=== PATIENT | male | born 1980 | race Caucasian/White ===

== ENCOUNTER 2025-02-22 14:53 | Observation (INO) ==
[2025-02-22] MEDS: IBUPROFEN 600 MG TAB PO STA (15:11)
[2025-02-22] MEDS: ACETAMINOPHEN 325 MG TAB PO STA (15:12)
[2025-02-22] MEDS: LIDOCAINE 5% 1 PATCH TD STA (15:13)
[2025-02-22] MEDS: ACETAMINOPHEN 1,000 MG/100 ML VIAL IV STA (15:15)
[2025-02-22] MEDS: KETOROLAC TROMETHAMINE 15 MG/ML VIAL IV ONE (15:15)
--- NOTE | 2025-02-22 15:29 | Emergency Department Note ---
Impression & Plan Intractable low back pain, Ambulatory dysfunction ED Provider Note NAME: FLORINA LOPEZ AGE: 44 SEX: M : 1980 ARRIVES VIA: Ambulance INFORMANT: Patient, EMS ED PROVIDER(S): Jesus Banks DO CHIEF COMPLAINT: back pain HPI: This is a 44-year-old male who is otherwise healthy presenting to [facility] for further evaluation of back pain. Patient is accompanied by EMS who provide additional history EMS states the patient took Tylenol prior to arrival. They state they found no significant injuries and he remained hemodynamically stable. Patient states that he may have twisted his back or strained his back this week while lifting. He states that he went out to take the garbage this morning and when walking back in the seized. He reports sharp pain in his lower back. Patient was told by his chiropractor to lay on the floor all weekend. They deny fever or chills. No cough or congestion. Denies chest pain or palpitations. No shortness of breath. They deny abdominal pain, nausea and vomiting. No urinary complaints. No recent changes in bowel movements. Patient denies recent changes in medications or OTC supplements. No numbness or tingling to the lower extremities. No urinary or bowel incontinence. No saddle anesthesia. No prior back surgery. Patient offers no other complaints, today. ADDITIONAL HISTORY OBTAINED: Per HPI Chronic Medical/Social Conditions Affecting Care: Per HPI PAST MEDICAL HISTORY: See Below PAST SURGICAL HISTORY: See Below FAMILY HISTORY: See Below SOCIAL HISTORY: See Below HOME MEDICATIONS: See Below ALLERGIES: See Below VITALS: See Below PHYSICAL EXAMINATION: GENERAL: Alert, well developed, well nourished, no acute distress HEAD: Normocephalic, atraumatic EYES: EOM's intact, sclera anicteric, conjunctiva clear OROPHARYNX: Airway patent and mucous membranes moist LUNGS: No respiratory distress, normal respiratory rate and effort HEART: Well perfused, regular rate ABDOMEN: Abdomen non-distended BACK: TTP over the bilateral paraspinal tissue in lumbar spine. No midline TTP or step offs. 5/5 strength in b/l LEs that are neurovascularly intact. 2/4 patellar reflexes bilaterally. EHL strength 5/5 bilaterally. SKIN: Normal color, dry EXTREMITIES: No gross deformities, no edema NEURO: Alert, oriented x3, appropriate for age, moves all four extremities, normal speech MEDICAL DECISION MAKING: Differential diagnoses includes but not limited to LBP, DDD, sciatica, UTI, AAA, pyelonephritis, nephrolithiasis, pancreatitis, musculoskeletal strain, muscle spasm, cord compression, spinal stenosis In summary, this is a 44 year old male who presented with back pain. Differential as above. Nursing notes and pertinent past medical records reviewed. Vital signs reviewed and the patient is mildly hypertensive but otherwise afebrile and HDS. History and presentation revealed some prior back issues but no documented injuries or surgeries. Physical examination revealed as above. As a result of my initial evaluation, I considered vascular as well as GI/ pathology but felt to be unlikely as the patient is otherwise healthy and symptoms are consistent with a musculoskeletal etiology. Labs were obtained. I did offer IV placement and IV medications to the patient. He currently would like to trial p.o. medications. The patient was given diazepam, ibuprofen, Tylenol and a lidocaine patch. He refused labs and IV placement/medications. The patient was managed with above therapies but failed to improve. He was given a PO dose of oxycodone. Offered the patient imaging and he was agreeable. CT L spine obtained and reviewed by me unremarkable. I did reevaluate the patient as reporting some improvement. Nursing staff and I tried to stand the patient. The patient can barely stand on his own. Still having severe lower back pain. He still he has a wide-based gait. Patient remains neurovascularly intact. Patient's will not be able to take him home like this. Patient cannot ambulate. Plan for PVR, lab work and MRI. Will give the patient IV fluid resuscitation, Zofran and steroids. I did reevaluate the patient. Patient was able to void while in the emergency department. Postvoid residual was 0 mL. Did reexamine the patient. Remains neurovascularly intact in the lower extremities. I have 0 suspicion for spinal cord compression but will obtain MRI for r/o and to evaluate for other pathology. Patient agreeable for admission and MRI. Discussed with Dr. Lopez of [facility] and subsequently admitted. Consults/Care Managements Discussions: Per [facility] ER treatment provided: See above Procedures: None Critical Care: None The chart was completed utilizing [employer] voice recognition software. Grammatical errors, random word insertions, pronoun errors, and incomplete sentences are an occasional consequence of this system due to software limitations, ambient noise, and hardware issues. Any formal questions or concerns about the content, text, or information contained within the body of this dictation should be directly addressed to the physician for clarification. Past Med/Surg History Problem List (Updated 02/22/25 @ 19:34 by Jesus Banks DO) Ambulatory dysfunction (Acute) Intractable low back pain (Acute) Social History Smoking Status: Never smoker Feels Safe at Home: Yes Allergies Allergies Allergy/AdvReac Type Severity Reaction Status Date / Time No Known Allergies Allergy Unknown Verified 11/28/24 09:11 Home Meds Home Medications Medication Instructions Recorded Confirmed No Known Home Medications 08/13/24 02/22/25 Results & Data (ED) Vital Signs Vital Signs - 24 hr 02/22/25 14:58 02/22/25 15:03 02/22/25 15:06 Temperature 36.9 C Temperature Source Oral Pulse Rate 81 69 70 Pulse Rate [Apical] Pulse Rate from SpO2 Sensor Respiratory Rate 16 19 Blood Pressure 144/70 H Blood Pressure [Right Arm] Blood Pressure Mean 94 Blood Pressure Mean [Right Arm] Pulse Oximetry 99 Oxygen Delivery Method Room Air Sepsis Recent Fever Within 48 Hours No Sepsis New/Unexplained Change in Mental Status N/A Sepsis Action Taken by Nursing No Action Required 02/22/25 15:12 02/22/25 15:21 02/22/25 15:30 Temperature Temperature Source Pulse Rate 71 63 71 Pulse Rate [Apical] Pulse Rate from SpO2 Sensor 64 71 Respiratory Rate 17 22 16 Blood Pressure Blood Pressure [Right Arm] Blood Pressure Mean Blood Pressure Mean [Right Arm] Pulse Oximetry 100 100 Oxygen Delivery Method Sepsis Recent Fever Within 48 Hours Sepsis New/Unexplained Change in Mental Status Sepsis Action Taken by Nursing 02/22/25 15:42 02/22/25 15:51 02/22/25 16:00 Temperature Temperature Source Pulse Rate 59 L 66 73 Pulse Rate [Apical] Pulse Rate from SpO2 Sensor 61 65 67 Respiratory Rate 24 19 12 Blood Pressure 147/85 H Blood Pressure [Right Arm] Blood Pressure Mean 105 Blood Pressure Mean [Right Arm] Pulse Oximetry 100 100 99 Oxygen Delivery Method Sepsis Recent Fever Within 48 Hours Sepsis New/Unexplained Change in Mental Status Sepsis Action Taken by Nursing 02/22/25 16:24 02/22/25 16:24 02/22/25 16:24 Temperature Temperature Source Pulse Rate Pulse Rate [Apical] Pulse Rate from SpO2 Sensor Respiratory Rate Blood Pressure 156/79 H 156/79 H 156/79 H Blood Pressure [Right Arm] Blood Pressure Mean 93 93 93 Blood Pressure Mean [Right Arm] Pulse Oximetry Oxygen Delivery Method Sepsis Recent Fever Within 48 Hours Sepsis New/Unexplained Change in Mental Status Sepsis Action Taken by Nursing 02/22/25 16:24 02/22/25 16:24 02/22/25 16:24 Temperature Temperature Source Pulse Rate 66 Pulse Rate [Apical] Pulse Rate from SpO2 Sensor 71 Respiratory Rate 14 Blood Pressure 156/79 H 156/79 H Blood Pressure [Right Arm] Blood Pressure Mean 93 93 Blood Pressure Mean [Right Arm] Pulse Oximetry 98 Oxygen Delivery Method Sepsis Recent Fever Within 48 Hours Sepsis New/Unexplained Change in Mental Status Sepsis Action Taken by Nursing 02/22/25 16:30 02/22/25 16:51 02/22/25 17:00 Temperature Temperature Source Pulse Rate 66 61 Pulse Rate [Apical] 71 Pulse Rate from SpO2 Sensor 66 63 Respiratory Rate 20 18 18 Blood Pressure Blood Pressure [Right Arm] 139/78 Blood Pressure Mean Blood Pressure Mean [Right Arm] 98 Pulse Oximetry 98 99 99 Oxygen Delivery Method Room Air Sepsis Recent Fever Within 48 Hours Sepsis New/Unexplained Change in Mental Status Sepsis Action Taken by Nursing 02/22/25 17:00 02/22/25 17:01 02/22/25 17:01 Temperature Temperature Source Pulse Rate 66 Pulse Rate [Apical] Pulse Rate from SpO2 Sensor 64 Respiratory Rate 12 Blood Pressure 139/78 139/78 Blood Pressure [Right Arm] Blood Pressure Mean 90 90 Blood Pressure Mean [Right Arm] Pulse Oximetry 99 Oxygen Delivery Method Sepsis Recent Fever Within 48 Hours Sepsis New/Unexplained Change in Mental Status Sepsis Action Taken by Nursing 02/22/25 17:01 02/22/25 17:01 02/22/25 17:01 Temperature Temperature Source Pulse Rate Pulse Rate [Apical] Pulse Rate from SpO2 Sensor Respiratory Rate Blood Pressure 139/78 139/78 139/78 Blood Pressure [Right Arm] Blood Pressure Mean 90 90 90 Blood Pressure Mean [Right Arm] Pulse Oximetry Oxygen Delivery Method Sepsis Recent Fever Within 48 Hours Sepsis New/Unexplained Change in Mental Status Sepsis Action Taken by Nursing 02/22/25 17:12 02/22/25 17:21 02/22/25 17:30 Temperature Temperature Source Pulse Rate 68 62 82 Pulse Rate [Apical] Pulse Rate from SpO2 Sensor 70 65 81 Respiratory Rate 14 19 14 Blood Pressure Blood Pressure [Right Arm] Blood Pressure Mean Blood Pressure Mean [Right Arm] Pulse Oximetry 98 100 98 Oxygen Delivery Method Sepsis Recent Fever Within 48 Hours Sepsis New/Unexplained Change in Mental Status Sepsis Action Taken by Nursing 02/22/25 17:42 02/22/25 17:51 02/22/25 18:00 Temperature Temperature Source Pulse Rate 73 72 74 Pulse Rate [Apical] Pulse Rate from SpO2 Sensor 73 75 73 Respiratory Rate 18 19 13 Blood Pressure Blood Pressure [Right Arm] Blood Pressure Mean Blood Pressure Mean [Right Arm] Pulse Oximetry 99 97 98 Oxygen Delivery Method Sepsis Recent Fever Within 48 Hours Sepsis New/Unexplained Change in Mental Status Sepsis Action Taken by Nursing 02/22/25 18:00 02/22/25 18:00 02/22/25 18:00 Temperature Temperature Source Pulse Rate Pulse Rate [Apical] Pulse Rate from SpO2 Sensor Respiratory Rate Blood Pressure 120/84 120/84 120/84 Blood Pressure [Right Arm] Blood Pressure Mean 89 89 89 Blood Pressure Mean [Right Arm] Pulse Oximetry Oxygen Delivery Method Sepsis Recent Fever Within 48 Hours Sepsis New/Unexplained Change in Mental Status Sepsis Action Taken by Nursing 02/22/25 18:00 02/22/25 18:00 02/22/25 18:12 Temperature Temperature Source Pulse Rate 65 Pulse Rate [Apical] Pulse Rate from SpO2 Sensor 65 Respiratory Rate 17 Blood Pressure 120/84 120/84 Blood Pressure [Right Arm] Blood Pressure Mean 89 89 Blood Pressure Mean [Right Arm] Pulse Oximetry 99 Oxygen Delivery Method Sepsis Recent Fever Within 48 Hours Sepsis New/Unexplained Change in Mental Status Sepsis Action Taken by Nursing 02/22/25 18:27 02/22/25 18:30 02/22/25 18:42 Temperature Temperature Source Pulse Rate 66 66 58 L Pulse Rate [Apical] Pulse Rate from SpO2 Sensor 65 63 60 Respiratory Rate 17 15 13 Blood Pressure Blood Pressure [Right Arm] Blood Pressure Mean Blood Pressure Mean [Right Arm] Pulse Oximetry 100 97 98 Oxygen Delivery Method Sepsis Recent Fever Within 48 Hours Sepsis New/Unexplained Change in Mental Status Sepsis Action Taken by Nursing 02/22/25 18:51 02/22/25 19:00 02/22/25 19:00 Temperature Temperature Source Pulse Rate 67 57 L Pulse Rate [Apical] Pulse Rate from SpO2 Sensor 64 60 Respiratory Rate 18 22 Blood Pressure 130/78 Blood Pressure [Right Arm] Blood Pressure Mean 102 Blood Pressure Mean [Right Arm] Pulse Oximetry 99 98 Oxygen Delivery Method Sepsis Recent Fever Within 48 Hours Sepsis New/Unexplained Change in Mental Status Sepsis Action Taken by Nursing 02/22/25 19:00 02/22/25 19:00 02/22/25 19:00 Temperature Temperature Source Pulse Rate Pulse Rate [Apical] Pulse Rate from SpO2 Sensor Respiratory Rate Blood Pressure 130/78 130/78 130/78 Blood Pressure [Right Arm] Blood Pressure Mean 102 102 102 Blood Pressure Mean [Right Arm] Pulse Oximetry Oxygen Delivery Method Sepsis Recent Fever Within 48 Hours Sepsis New/Unexplained Change in Mental Status Sepsis Action Taken by Nursing 02/22/25 19:00 Temperature Temperature Source Pulse Rate Pulse Rate [Apical] Pulse Rate from SpO2 Sensor Respiratory Rate Blood Pressure 130/78 Blood Pressure [Right Arm] Blood Pressure Mean 102 Blood Pressure Mean [Right Arm] Pulse Oximetry Oxygen Delivery Method Sepsis Recent Fever Within 48 Hours Sepsis New/Unexplained Change in Mental Status Sepsis Action Taken by Nursing Laboratory Data 02/22/25 18:25 02/22/25 18:25 Lab Results 02/22/25 02/22/25 Range/Units 18:25 18:41 WBC 8.17 (4.8-10.8) K/ul RBC 5.40 (4.70-6.10) M/uL Hgb 16.3 (14.0-18.0) g/dL Hct 46.4 (42.0-52.0) % MCV 85.9 (80.0-100.0) fL MCH 30.2 (25.0-34.0) pg MCHC 35.1 (32.0-36.0) g/dL RDW Std Deviation 37.2 (36.4-46.3) fL RDW Coeff of Tabby 11.9 (11.5-14.5) % Plt Count 339 (130-400) K/uL MPV 9.7 (9.4-12.4) fL Immature Gran % (Auto) 0.2 % Neut % (Auto) 64.4 % Lymph % (Auto) 26.4 % [place] % (Auto) 6.5 % Eos % (Auto) 2.0 % Baso % (Auto) 0.5 % Neut # (Auto) 5.26 (1.40-6.50) K/uL Lymph # (Auto) 2.16 (1.20-3.40) K/uL [place] # (Auto) 0.53 (0.11-0.59) K/uL Eos # (Auto) 0.16 (0.00-0.50) K/uL Baso # (Auto) 0.04 (0.00-0.20) K/uL Immature Gran # (Auto) 0.02 (0.01-0.20) K/uL Sodium 140 (136-145) mmol/L Potassium 3.7 (3.5-5.1) mmol/L Chloride 104 (98-107) mmol/L Carbon Dioxide 27 (21-32) mmol/L Anion Gap 9 (3-11) BUN 16 (6-23) mg/dl Creatinine 0.91 (0.6-1.4) mg/dl Est Cr Clr Drug Dosing 102.3 ml/min eGFR 107.92 BUN/Creatinine Ratio 17.6 (10-20) Glucose 104 H (70-99(Fasting)) mg/dl Calcium 9.7 (8.6-10.3) mg/dl Magnesium 2.2 (1.7-2.4) mg/dl Total Bilirubin 0.5 (0.2-1.0) mg/dl AST 15 (13-39) U/L ALT 18 (7-52) U/L Alkaline Phosphatase 42 (34-104) U/L Total Protein 7.0 (6.0-8.3) gm/dl Albumin 4.6 (3.4-5.0) gm/dl Globulin 2.4 L (2.5-4.0) gm/dl Albumin/Globulin Ratio 1.9 (0.9-2) Urine Color Yellow Urine Appearance Turbid A (Clear) Urine pH 7.5 (4.5-7.5) Ur Specific [place] 1.019 (1.000-1.030) Urine Protein Negative (Negative) Urine Glucose (UA) Negative (Negative) Urine Ketones Negative (Negative) Urine Blood Negative (Negative) Urine Nitrite Negative (Negative) Urine Bilirubin Negative (Negative) Urine Urobilinogen Negative (Negative) Ur Leukocyte Esterase Negative (Negative) Urine WBC (Auto) 0-5 (0-5) /hpf Urine RBC (Auto) 0-2 (0-2) /hpf U Hyaline Cast (Auto) 0-2 (0-2) /lpf U Epithel Cells (Auto) 0-2 (0-2) /hpf Urine Bacteria (Auto) None Seen (None Seen) Urine Comment Administered Medications Discontinued Medications Acetaminophen (Acetaminophen 325 Mg Tab) 650 mg PO NOW STA Stop: 02/22/25 15:02 Last Admin: 02/22/25 15:12 Dose: 650 mg Documented By: GAMA Dexamethasone (Dexamethasone Sod Inj 4 Mg/Ml Vial) 10 mg IV NOW STA Stop: 02/22/25 18:24 Last Admin: 02/22/25 18:30 Dose: 10 mg Documented By: GAMA Diazepam (Diazepam Inj 5 Mg/Ml 2 Ml Carp) 5 mg IV NOW STA Stop: 02/22/25 14:59 Last Admin: 02/22/25 15:15 Dose: Not Given Documented By: GAMA Diazepam (Diazepam 5 Mg Tablet) 5 mg PO NOW ONE Stop: 02/22/25 15:02 Last Admin: 02/22/25 15:12 Dose: 5 mg Documented By: GAMA Diazepam (Diazepam 5 Mg Tablet) 5 mg PO NOW ONE Stop: 02/22/25 17:46 Last Admin: 02/22/25 17:48 Dose: 5 mg Documented By: GAMA Acetaminophen (Ofirmev) 1,000 mg in 100 mls @ 400 mls/hr IV NOW STA Stop: 02/22/25 15:12 Last Admin: 02/22/25 15:15 Dose: Not Given Documented By: GAMA Parenteral Electrolytes (Plasma-Lyte A Ph 7.4) 1,000 mls @ 999 mls/hr IV .Q1H1M ONE Stop: 02/22/25 19:24 Last Admin: 02/22/25 18:30 Dose: 999 mls/hr Documented By: GAMA Ibuprofen (Ibuprofen 600 Mg Tab) 600 mg PO NOW STA Stop: 02/22/25 15:02 Last Admin: 02/22/25 15:11 Dose: 600 mg Documented By: GAMA Ketorolac Tromethamine (Ketorolac Tromethamine 15 Mg/Ml Vial) 10 mg IV NOW ONE Stop: 02/22/25 14:59 Last Admin: 02/22/25 15:15 Dose: Not Given Documented By: GAMA Lidocaine (Lidocaine 5% 1 Patch) 1 patch TD NOW STA Stop: 02/22/25 15:03 Last Admin: 02/22/25 15:13 Dose: 1 patch Documented By: GAMA Ondansetron HCl (Ondansetron Inj 2 Mg/Ml 2 Ml Vial) 4 mg IV NOW STA Stop: 02/22/25 18:24 Last Admin: 02/22/25 18:30 Dose: 4 mg Documented By: GAMA Oxycodone HCl (Oxycodone Hcl Ir 5 Mg Tab (Immediate Release)) 5 mg PO NOW STA Stop: 02/22/25 16:06 Last Admin: 02/22/25 16:24 Dose: 5 mg Documented By: GAMA Imaging Data Radiologist's Impression: Lumbar Spine X-Ray 02/22/25 14:58 COMPARISON: NONE FINDINGS: BONES: No evidence of acute fracture or subluxation. DISC LEVELS: Mild disc space narrowing at L5-S1. SOFT TISSUES: Moderate stool in the colon. IMPRESSION: No acute pathology. Electronically signed by Ronnie Coker 02-22-2025 4:[address] 02/22/25 16:25 INDICATION: Back pain COMPARISON: None TECHNIQUE: Contiguous axial CT images were obtained through the lumbar spine. Sagittal and coronal reconstructions were obtained. Dose reduction according to patient size and/or automated exposure control techniques have been utilized for this exam. FINDINGS: No acute fracture or subluxation. Mild levoscoliosis. Probable L2 hemangioma. The visualized soft tissues are unremarkable. L1-L2: No significant degenerative changes. L2-L3: There is mild facet hypertrophy. No significant canal stenosis or foraminal narrowing. L3-L4: There is mild facet hypertrophy.No significant canal stenosis or foraminal narrowing. L4-L5: There is minimal to mild disc bulging. Mild facet hypertrophy. No significant canal stenosis or foraminal narrowing. L5-S1: There is minimal to mild disc bulging. Mild facet hypertrophy. No significant canal stenosis or foraminal narrowing. IMPRESSION: No acute findings. Minimal to mild degenerative changes without significant canal stenosis or foraminal narrowing. Electronically signed by Ronnie Coker 02-22-2025 6:12 PM Discharge Plan Visit Data Chief Complaint: Back Injury/Pain Stated Complaint: Back pain ED Provider: Jesus Banks Discharge Problem: Intractable low back pain, Ambulatory dysfunction Patient Disposition: Admitted As Inpatient Condition: Fair Forms Stand Alone Forms: My S[employer] Prescriptions Prescriptions: No Action No Known Home Medications Referrals Referrals: Beckie Sanchez DO [Primary Care Provider] -
--- NOTE | 2025-02-22 16:29 | XRay Report ---
COMPARISON: NONE FINDINGS: BONES: No evidence of acute fracture or subluxation. DISC LEVELS: Mild disc space narrowing at L5-S1. SOFT TISSUES: Moderate stool in the colon. IMPRESSION: No acute pathology. Electronically signed by Ronnie Coker 02-22-2025 4:29 PM
--- NOTE | 2025-02-22 18:12 | CT Scan Report ---
INDICATION: Back pain COMPARISON: None TECHNIQUE: Contiguous axial CT images were obtained through the lumbar spine. Sagittal and coronal reconstructions were obtained. Dose reduction according to patient size and/or automated exposure control techniques have been utilized for this exam. FINDINGS: No acute fracture or subluxation. Mild levoscoliosis. Probable L2 hemangioma. The visualized soft tissues are unremarkable. L1-L2: No significant degenerative changes. L2-L3: There is mild facet hypertrophy. No significant canal stenosis or foraminal narrowing. L3-L4: There is mild facet hypertrophy.No significant canal stenosis or foraminal narrowing. L4-L5: There is minimal to mild disc bulging. Mild facet hypertrophy. No significant canal stenosis or foraminal narrowing. L5-S1: There is minimal to mild disc bulging. Mild facet hypertrophy. No significant canal stenosis or foraminal narrowing. IMPRESSION: No acute findings. Minimal to mild degenerative changes without significant canal stenosis or foraminal narrowing. Electronically signed by Ronnie Coker 02-22-2025 6:12 PM
[2025-02-22] MEDS: ONDANSETRON INJ 2 MG/ML 2 ML VIAL IV STA (18:30)
[2025-02-22] MEDS: PLASMA-LYTE A 1,000 ML IV ONE (18:30)
[2025-02-22] MEDS: DEXAMETHASONE SOD INJ 4 MG/ML VIAL IV STA (18:30)
[2025-02-22 18:36] LABS: Hematocrit (blood only) 46.4 % (42.0-52.0); Hemoglobin 16.3 g/dL (14.0-18.0); Immature Granulocytes # (auto) 0.02 K/uL (0.01-0.20); Immature Granulocytes % (auto) 0.2 %; Mean Corpuscular Hemoglobin 30.2 pg (25.0-34.0); Mean Corpuscular Volume 85.9 fL (80.0-100.0); Platelet Count 339 K/uL (130-400); RDW Standard Deviation 37.2 fL (36.4-46.3); Red Blood Count 5.40 M/uL (4.70-6.10); White Blood Count 8.17 K/ul (4.8-10.8)
[2025-02-22 18:52] LABS: Alanine Aminotransferase 18.0 U/L (7-52); Albumin Globulin Ratio 1.9 (0.9-2); Albumin Level 4.6 gm/dl (3.4-5.0); Alkaline Phosphatase 42.0 U/L (34-104); Anion Gap 9.0 (3-11); Bilirubin,Total 0.5 mg/dl (0.2-1.0); Blood Urea Nitrogen 16.0 mg/dl (6-23); Calcium 9.7 mg/dl (8.6-10.3); Carbon Dioxide 27.0 mmol/L (21-32); Chloride 104.0 mmol/L (98-107); Creatinine Clr Calc Pharmacy 102.3 ml/min; Globulin 2.4 gm/dl (2.5-4.0); Glucose 104.0 mg/dl (70-99(Fasting)); Magnesium 2.2 mg/dl (1.7-2.4); Potassium 3.7 mmol/L (3.5-5.1); Sodium 140.0 mmol/L (136-145); Total Protein 7.0 gm/dl (6.0-8.3)
[2025-02-22 18:54] LABS: Appearance Urine Turbid (Clear); Bacteria Urine Automated None Seen (None Seen); Cast Urine Automated 0-2 /lpf (0-2); Epithelial Cell Urine Auto 0-2 /hpf (0-2); Glucose Urine UA Negative (Negative); RBC Urine Automated 0-2 /hpf (0-2); WBC Urine Automated 0-5 /hpf (0-5)
--- NOTE | 2025-02-22 20:14 | Magnetic Resonance Report ---
Exam(s): MRI L SPINE Without Contrast EXAM: MR Lumbar Spine Without Intravenous Contrast CLINICAL HISTORY: Reason for exam: severe back pain, amb dysfxn. TECHNIQUE: Magnetic resonance images of the lumbar spine without intravenous contrast in multiple planes. COMPARISON: Same-day CT lumbar spine FINDINGS: There is normal lumbar lordosis, vertebral body height, and alignment. There is no acute fracture or traumatic subluxation. There is no discitis. Diffusely decreased marrow signal intensity is noted on T1 weighted images. Conus medullaris is seen opposite to T12-L1 and is normal in caliber and signal. There is disc desiccation at L5-S1. Disc heights are maintained throughout the lumbar spine. There are mild degrees of facet degeneration. There is no spinal canal or foraminal narrowing at any lumbar level. Sacroiliac joints are normally aligned. Paravertebral soft tissues are unremarkable. IMPRESSION: 1. No acute osseous findings. No significant canal or foraminal narrowing. 2. Diffusely decreased marrow signal intensity on T1 weighted imaging suggesting marrow hyperplasia, most commonly seen in the setting of smoking, obesity, or anemia. Electronically signed by: Helen Molina M.D. 02/22/25 20:13 PM
[2025-02-22] MEDS ORDERED: HYDROmorphone INJ 0.5 MG/0.5 ML SYR IV PRN (20:30)
[2025-02-22] MEDS ORDERED: ONDANSETRON INJ 2 MG/ML 2 ML VIAL IV PRN (20:30)
--- NOTE | 2025-02-22 20:39 | History & Physical Report ---
Date of Service February 22, 2025 Assessment & Plan (1) Intractable low back pain: Plan: 44-year-old without any significant past medical history and lifts weight as an outpatient Lifting of 180 pounds on Tuesday with some back pain which faded away subsequentl y He sneezed at around 10 AM this morning and got severe pain in the lower back without radiation and without any numbness and or tingling involving the extremities Pain was so severe that he was not able to ambulate to go home Neuro examination unremarkable for any radiculopathy CT scan of the lumbar spine and MRI of the lumbar spine did not show any significant nerve entrapment or foraminal stenosis Not sure about diffusely decreased marrow signal intensity on the T1 weighted imaging suggesting marrow hyperplasia most commonly seen in the setting of smoking, obesity or anemia- please discussed with the radiologist or discussed with orthospine to make sure there is nothing serious before discharging the patient. (2) Ambulatory dysfunction: Plan: PT evaluation prior to discharge DVT prophylaxis he is very active will do SCDs and ambulation CODE STATUS Full History of Present Illness Chief Complaint: Severe back pain since this morning Primary Care Provider: Beckie Sanchez DO He is a 44-year-old male without any significant past medical history and not been taking any prescription medicine apparently came in with severe intractable low back pain that he is unable to move around due to pain. Apparently he does regular exercise and lifts weight as well. He lifted about 180 pounds on Tuesday and got some back pain but eventually the pain went away. He tried occasional Tylenol and ibuprofen to control the pain. This morning while he was giving out of the trash he sneezed and got severe pain at the lower back he managed to come into the House and lay down and was brought into the emergency room for further examination and evaluation. he manage to PE following this incidence but has not had a bowel movement yet. He denies any numbness or tingling in the extremities and he denies any weakness involving the lower extremities. He is afraid of lifting the legs due to pain and also in the ER he could not stand without severe pain so was not being able to sent home. Apparent CT of the lumbar spine and MRI of the lumbar spine fairly unremarkable. He will be admitted to medical telemetry unit for continuation of care will get PT and OT and likely home tomorrow. Allergies Allergy/AdvReac Type Severity Reaction Status Date / Time No Known Allergies Allergy Unknown Verified 11/28/24 09:11 Home Medications Medication Instructions Recorded Confirmed Type No Known Home Medications 08/13/24 02/22/25 History Past Med/Surg History Problem List (Updated 02/22/25 @ 19:34 by Jesus Banks DO) Ambulatory dysfunction (Acute) Intractable low back pain (Acute) Social History Smoking Status: Never smoker Feels Safe at Home: Yes Review of Systems Review of Systems: All systems reviewed and are unremarkable except as noted below Physical Exam Physical Exam: Lying in bed without any acute distress Constitutional: well developed, well nourished and average body habitus Eyes: PERRL, conjunctivae normal, anicteric sclerae ENMT: external ear and nose normal, oropharynx normal Neck: trachea midline, no thyromegaly Respiratory: normal respiratory effort, lungs clear to auscultation Cardiovascular: Rate/Rhythm: regular rate, regular rhythm and + bradycardic Heart Sounds: normal S1 and normal S2; no murmur Extremities: no edema Gastrointestinal (Abdomen): Inspection/Auscultation: normal bowel sounds; abdomen not distended Percussion/Palpation: abdomen soft; abdomen nontender Musculoskeletal: Spine: lumbar spine normal to inspection ( No acute tenderness involving the lumbar spine area) no acute arthritis involving any of the joint Neurologic: normal touch/pain/proprioception and moves all extremities; no focal motor deficits Straight leg raising was painful but did not have any radiculopathy on clinical examination Lymphatic: no cervical or axillary lymphadenopathy Results & Data Results & Data Vital Signs (Past 12 Hours) Vital Signs Temp Pulse Pulse Resp BP BP Pulse Ox 02/22/25 19:00 130/78 02/22/25 19:00 130/78 02/22/25 19:00 130/78 02/22/25 19:00 130/78 02/22/25 19:00 130/78 02/22/25 19:00 57 L 22 98 02/22/25 18:51 67 18 99 02/22/25 18:42 58 L 13 98 02/22/25 18:30 66 15 97 02/22/25 18:27 66 17 100 02/22/25 18:12 65 17 99 02/22/25 18:00 120/84 02/22/25 18:00 120/84 02/22/25 18:00 120/84 02/22/25 18:00 120/84 02/22/25 18:00 120/84 02/22/25 18:00 74 13 98 02/22/25 17:51 72 19 97 02/22/25 17:42 73 18 99 02/22/25 17:30 82 14 98 02/22/25 17:21 62 19 100 02/22/25 17:12 68 14 98 02/22/25 17:01 139/78 02/22/25 17:01 139/78 02/22/25 17:01 139/78 02/22/25 17:01 139/78 02/22/25 17:01 139/78 02/22/25 17:00 66 12 99 02/22/25 17:00 71 18 139/78 99 02/22/25 16:51 61 18 99 02/22/25 16:30 66 20 98 02/22/25 16:24 66 14 98 02/22/25 16:24 156/79 H 02/22/25 16:24 156/79 H 02/22/25 16:24 156/79 H 02/22/25 16:24 156/79 H 02/22/25 16:24 156/79 H 02/22/25 16:00 73 12 99 02/22/25 15:51 66 19 100 02/22/25 15:42 59 L 24 147/85 H 100 02/22/25 15:30 71 16 100 02/22/25 15:21 63 22 100 02/22/25 15:12 71 17 02/22/25 15:06 70 19 02/22/25 15:03 69 02/22/25 14:58 36.9 C 81 16 144/70 H 99 O2 Del Method 02/22/25 19:00 02/22/25 19:00 02/22/25 19:00 02/22/25 19:00 02/22/25 19:00 02/22/25 19:00 02/22/25 18:51 02/22/25 18:42 02/22/25 18:30 02/22/25 18:27 02/22/25 18:12 02/22/25 18:00 02/22/25 18:00 02/22/25 18:00 02/22/25 18:00 02/22/25 18:00 02/22/25 18:00 02/22/25 17:51 02/22/25 17:42 02/22/25 17:30 02/22/25 17:21 02/22/25 17:12 02/22/25 17:01 02/22/25 17:01 02/22/25 17:01 02/22/25 17:01 02/22/25 17:01 02/22/25 17:00 02/22/25 17:00 Room Air 02/22/25 16:51 02/22/25 16:30 02/22/25 16:24 02/22/25 16:24 02/22/25 16:24 02/22/25 16:24 02/22/25 16:24 02/22/25 16:24 02/22/25 16:00 02/22/25 15:51 02/22/25 15:42 02/22/25 15:30 02/22/25 15:21 02/22/25 15:12 02/22/25 15:06 02/22/25 15:03 02/22/25 14:58 Room Air Laboratory Results Short CBC 02/22/25 Range/Units 18:25 WBC 8.17 (4.8-10.8) K/ul Hgb 16.3 (14.0-18.0) g/dL Hct 46.4 (42.0-52.0) % Plt Count 339 (130-400) K/uL BMP 02/22/25 18:25 Sodium 140 Potassium 3.7 Chloride 104 Carbon Dioxide 27 BUN 16 Creatinine 0.91 Glucose 104 H Calcium 9.7 Liver Function 02/22/25 Range/Units 18:25 Total Bilirubin 0.5 (0.2-1.0) mg/dl AST 15 (13-39) U/L ALT 18 (7-52) U/L Alkaline Phosphatase 42 (34-104) U/L Albumin 4.6 (3.4-5.0) gm/dl Urine 02/22/25 Range/Units 18:41 Urine Color Yellow Urine Appearance Turbid A (Clear) Urine pH 7.5 (4.5-7.5) Ur Specific [place] 1.019 (1.000-1.030) Urine Protein Negative (Negative) Urine Glucose (UA) Negative (Negative) Medications Administered Current Inpatient Medications Baclofen (Baclofen 10 Mg Tab) 10 mg PO TID [facility] Stop: 03/24/25 20:59 Hydromorphone HCl (Hydromorphone Inj 0.5 Mg/0.5 Ml Syr) 0.5 mg IV Q6H PRN PRN Reason: Pain Stop: 03/08/25 20:29 Ketorolac Tromethamine (Ketorolac 30 Mg/Ml Vial) 30 mg IV Q6H PRN PRN Reason: Pain Stop: 02/27/25 20:29 Miscellaneous (Remove Lidoderm Patch) 1 each N/A DAILY@2100 [facility] Stop: 03/24/25 20:59 Last Admin: 02/22/25 20:41 Dose: Not Given Ondansetron HCl (Ondansetron Inj 2 Mg/Ml 2 Ml Vial) 4 mg IV Q6H PRN PRN Reason: Nausea And Vomiting Stop: 03/24/25 20:29 Code Status & VTE Plan VTE Prophylaxis Plan VTE Prophylaxis will be ordered: Yes
[2025-02-22] MEDS: REMOVE LIDODERM PATCH SCH (20:41)
[2025-02-22] MEDS: BACLOFEN 10 MG TAB PO SCH (21:58)
[2025-02-22] MEDS: KETOROLAC 30 MG/ML VIAL IV PRN (21:59)
[2025-02-23 06:18] LABS: Hematocrit (blood only) 45.7 % (42.0-52.0); Hemoglobin 16.0 g/dL (14.0-18.0); Immature Granulocytes # (auto) 0.03 K/uL (0.01-0.20); Immature Granulocytes % (auto) 0.4 %; Mean Corpuscular Hemoglobin 30.7 pg (25.0-34.0); Mean Corpuscular Volume 87.5 fL (80.0-100.0); Platelet Count 320 K/uL (130-400); RDW Standard Deviation 38.5 fL (36.4-46.3); Red Blood Count 5.22 M/uL (4.70-6.10); White Blood Count 6.71 K/ul (4.8-10.8)
[2025-02-23 06:35] LABS: Anion Gap 7.0 (3-11); Blood Urea Nitrogen 18.0 mg/dl (6-23); Calcium 9.4 mg/dl (8.6-10.3); Carbon Dioxide 27.0 mmol/L (21-32); Chloride 104.0 mmol/L (98-107); Creatinine Clr Calc Pharmacy 95.0 ml/min; Glucose 140.0 mg/dl (70-99(Fasting)); Potassium 4.3 mmol/L (3.5-5.1); Sodium 138.0 mmol/L (136-145)
--- NOTE | 2025-02-23 11:18 | Discharge Summary ---
Discharge Summary Date of Service February 23, 2025 Principal Dx & Hospital Course #1 = Principal Diagnosis (1) Intractable low back pain: 44-year-old without any significant past medical history and lifts weight as an outpatient Lifting of 180 pounds on Tuesday with some back pain which faded away subsequently He sneezed at around 10 AM this morning and got severe pain in the lower back without radiation and without any numbness and or tingling involving the extremities Pain was so severe that he was not able to ambulate to go home Neuro examination unremarkable for any radiculopathy CT scan of the lumbar spine and MRI of the lumbar spine did not show any significant nerve entrapment or foraminal stenosis Today, he is feeling very well and wishes to go home. minimal low back pain. ambulating without issue. No urinary or fecal incontinence. No weakness or paresthesia. No reproducible symptoms with passive neck movement. vitals and labs are stable on day of discharge. I spent a total of 35 minutes coordinating, documenting, and providing care for this patient excluding time spent in the performance of separately billed services. This included personally reviewing all current laboratories and imaging studies, medical reconciliation, outpatient chart review and discussion with specialists (2) Ambulatory dysfunction: PT evaluation prior to discharge DVT prophylaxis he is very active will do SCDs and ambulation CODE STATUS Full Notes For Next Care Provider Medication Changes From Visit none Admission HPI Per Admitting Provider He is a 44-year-old male without any significant past medical history and not been taking any prescription medicine apparently came in with severe intractable low back pain that he is unable to move around due to pain. Apparently he does regular exercise and lifts weight as well. He lifted about 180 pounds on Tuesday and got some back pain but eventually the pain went away. He tried occasional Tylenol and ibuprofen to control the pain. This morning while he was giving out of the trash he sneezed and got severe pain at the lower back he managed to come into the House and lay down and was brought into the emergency room for further examination and evaluation. he manage to PE following this incidence but has not had a bowel movement yet. He denies any numbness or tingling in the extremities and he denies any weakness involving the lower extremities. He is afraid of lifting the legs due to pain and also in the ER he could not stand without severe pain so was not being able to sent home. Apparent CT of the lumbar spine and MRI of the lumbar spine fairly unremarkable. He will be admitted to medical telemetry unit for continuation of care will get PT and OT and likely home tomorrow. Discharge Exam Vitals and labs reviewed General: Well appearing, NAD HEENT: EOMI, PERRLA Neck: Supple Lungs: no distress Abd: ND :no anders MSK: Full ROM. No obvious deformities Ext: No Edema cyanosis Skin: Warm, Dry Neuro: AOx3 No focal deficits. no weakness or paresthesia Psych: Normal Mood Updated Medication List Medication Instructions Recorded Confirmed Type No Known Home Medications 08/13/24 02/22/25 History Hospital Stay Data Consultations 02/22/25 19:29 ED Decision to Admit Stat Diagnostic Imagining Performed 02/22/25 16:25 CT lumbar spine wo con Stat 02/22/25 18:23 MRI Lumbar Spine [MR lumbar spine wo con] Stat Pending Results Patient Have Any Pending Studies at Discharge: No Discharge Instructions Given to Patient (Per Discharging Provider) hold off on exercising for a week. Take advil or naproxen three times per day if needed. Do not take for more than 5 days. follow up with your PCP in one week. Return to ED if back pain returns and is severe, you develop urinary or fecal incontinence, weakness or numbness Total Time Total Time Spent Total Time Spent (In Minutes): 35
[2025-02-23 12:11] VITALS: BP 114/69; PULSE 73; RESP 16; TEMP 98.6; O2SAT 98
== END 2025-02-23 12:13 | disposition home or self-care (01) ==
LOC: ED 14:53 → EDINP 14:53 → SUATTDRO 20:28 → 2W 21:08